=== PATIENT | male | born 1980 | race African-American/Black ===

== ENCOUNTER 2018-09-13 16:48 | Emergency (ER) | payer MEDICAID ==
[~2018-09-13] VITALS: Ht 180.3 cm; Wt 106.4 kg
[2018-09-13] MEDS ORDERED: propofol 10mg/ml 20ml vial IV ONE (17:20)
[2018-09-13] MEDS ORDERED: ondansetron/PF 4mg/2ml inj IV ONE (17:20)
[2018-09-13] MEDS ORDERED: fentaNYL/PF 50MCG/1 ML 2ML syringe IV ONE (17:20)
--- NOTE | 2018-09-13 17:45 | NUR ---
PATIENT RECEIVED IN BED 3.
[2018-09-13] MEDS ORDERED: HYDR-4353 PO (17:57)
--- NOTE | 2018-09-13 19:20 | NUR ---
MED WASTED WITH JENNIFER FONTANEZ RN. 120MG USED, 80MG WASTED.
[2018-09-13] MEDS ORDERED: clindamycin 600mg/D5W 50ml 50 ML IV ONE (19:25)
[2018-09-13 19:29] VITALS: BP 117/82
== END 2018-09-13 19:43 | disposition home or self-care (01) ==
LOC: ER 16:48
DX: S52.121A Displaced fracture of head of right radius, initial encounter for closed fracture (principal); S53.124A Posterior dislocation of right ulnohumeral joint, initial encounter; M25.511 Pain in right shoulder; Z88.0 Allergy status to penicillin; Z88.2 Allergy status to sulfonamides; Z88.8 Allergy status to other drugs, medicaments and biological substances; Z91.011 Allergy to milk products; W19.XXXA Unspecified fall, initial encounter; Y93.89 Activity, other specified; Y92.242 Post office as the place of occurrence of the external cause; Y99.8 Other external cause status
CPT/HCPCS: 24600; 73030; 73080; 93005; 96374; 96375; 99152; 99153; 99285; J2405; J2704; J3010

== ENCOUNTER 2018-09-23 17:34 | Emergency (ER) | payer MEDICAID | END 2018-09-23 20:33 | disposition left against medical advice (07) | LOC: ER 17:35 | DX: M79.643 Pain in unspecified hand (principal); Z53.21 Procedure and treatment not carried out due to patient leaving prior to being seen by health care provider ==

== ENCOUNTER → 2018-09-24 | Emergency (ER) | payer MEDICAID ==
[~2018-09-24] VITALS: Ht 188 cm; Wt 94.0 kg
[~2018-09-24] MED LIST: HYDROcodone/acetaminophen 5mg/325mg tablet PO ONE
[2018-09-24 09:56] VITALS: BP 127/92
== END | disposition home or self-care (01) ==
LOC: ER 09:29
DX: S52.121A Displaced fracture of head of right radius, initial encounter for closed fracture (principal); Z88.0 Allergy status to penicillin; Z88.2 Allergy status to sulfonamides; Z88.8 Allergy status to other drugs, medicaments and biological substances; Z91.011 Allergy to milk products; W19.XXXA Unspecified fall, initial encounter; Y93.89 Activity, other specified; Y92.89 Other specified places as the place of occurrence of the external cause; Y99.9 Unspecified external cause status
CPT/HCPCS: 29105; 73030; 73070; 99283

== ENCOUNTER 2018-09-26 00:42 | Emergency (ER) | payer MEDICAID ==
[~2018-09-26] VITALS: Ht 180.3 cm; Wt 96.0 kg
[2018-09-26] MEDS ORDERED: ketorolac trometh inj. 60 MG/2 ML VIAL IM ONE (01:15)
[2018-09-26 01:54] VITALS: BP 111/68
== END 2018-09-26 01:58 | disposition home or self-care (01) ==
LOC: ER 00:43
DX: M79.631 Pain in right forearm (principal); Z76.0 Encounter for issue of repeat prescription; Z88.2 Allergy status to sulfonamides; Z88.0 Allergy status to penicillin; Z91.011 Allergy to milk products; M79.601 Pain in right arm
CPT/HCPCS: 96372; 99283; J1885